=== PATIENT | female | born 1935 | race Caucasian/White ===

== ENCOUNTER 2016-08-06 20:15 | Emergency (ER) | payer MEDICARE, MEDICAID ==
[~2016-08-06] VITALS: Ht 149.9 cm; Wt 49.8 kg
[~2016-08-06 20:15] MED LIST: AUGM875T PO; CART240C4 PO; CHOL50006 PO; CLON0.5T PO; COZA50TA PO; DUONI NEB; LEVEMIR SQ; LIPI40TA PO; NOVONP2 SQ; PRED20 PO; ROPI.25 PO; TRAM50 PO
[2016-08-06 20:36] VITALS: BP 176/99; PULSE 90; RESP 18; TEMP 98.3; O2SAT 93
[2016-08-06] MEDS ORDERED: INSU1INJ5 SQ (21:01)
[2016-08-06] MEDS ORDERED: NOVONP2 SQ (21:01)
[2016-08-06] MEDS ORDERED: FLUT1INH INH (21:01)
[2016-08-06] MEDS ORDERED: IPRASOL INH (21:01)
[2016-08-06] MEDS ORDERED: ERGO1CAP10 PO (21:01)
[2016-08-06] MEDS ORDERED: CART240C PO (21:01)
[2016-08-06] MEDS ORDERED: LOSA100T PO (21:01)
[2016-08-06] MEDS ORDERED: CLON0.5T PO (21:01)
[2016-08-06] MEDS ORDERED: ROPI0.25 PO (21:01)
[2016-08-06] MEDS ORDERED: VENTAER INH (21:01)
[2016-08-06] MEDS ORDERED: ATOR20TA15 PO (21:01)
[2016-08-06 21:10] VITALS: BP 173/79
[2016-08-06] MEDS ORDERED: cloNIDine HCL 0.1 MG TAB PO ONE (21:30)
[2016-08-06 22:40] VITALS: BP 119/58; PULSE 75; RESP 18; O2SAT 93
--- NOTE | 2016-08-06 22:47 | PD ---
HPI Chief Complaint: Hypertension Time Seen by Provider: 20:59 Travel History International Travel<30 days: No Contact w/Intl Traveler<30days: No Traveled to known affect area: No History of Present Illness HPI 80-year-old female presents with complaint of high blood pressure. She was having a headache at home so she checked her blood pressure. The blood pressure was about 160/100. This concerned her greatly so she checked her pressure again and it was higher. She does have a history of hypertension and is on medication. Her headache actually is much better at this point she is a patient with Dr. Kaur: She does go for regular blood work. She is not having any chest pain or shortness of breath. 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 breast wound Eye Surgery: Yes (Cataract) Genitourinary Surgery: Yes (Rt. kidney removed) Gynecologic Surgery: Yes (Left lumpectomy ) Hysterectomy: No Other Surgery: Yes (Skin CA removal RUE) Social History Alcohol Use: No Tobacco Use: Yes (1/2 PPD) Substance Use: No Allergies-Medications (Allergen,Severity, Reaction): Coded Allergies: Bactrim (Verified Allergy, Severe, 08/06/16) Calcium (Verified Allergy, Severe, 08/06/16) Contrast Media (Verified Allergy, Severe, 08/06/16) Fluorescein (Verified Allergy, Severe, Rash, 08/06/16) Keflex (Verified Allergy, Severe, 08/06/16) Levaquin (Verified Allergy, Severe, Rash, 08/06/16) Morphine (Verified Allergy, Severe, Hallucinations, 08/06/16) Metformin (Verified Adverse Reaction, Severe, Anxiety, 08/06/16) Reported Meds & Prescriptions Reported Meds & Active Scripts Active Reported Duoneb (Ipratropium-Albuterol Neb) 0.5-2.5 Mg/3 Ml Neb 1 Nebule INH Q4HR NEB Ventolin Hfa 18 GM Inh (Albuterol Sulfate) 90 Mcg/Act Aer 2 Puff INH Q4-6H PRN Breo Ellipta Inh (Fluticasone/Vilanterol) 100-25 Mcg/Act Inh 1 Puff INH HS Use daily at the same time. Novolin N Inj (Insulin Human NPH) 1,000 Unit/10 Ml Vial 5 Units SQ DAILY Levemir Flextouch Pen Inj (Insulin Detemir) 300 unit/3 ML Pen 6 Units SQ HS Vitamin D (Ergocalciferol) 50,000 Unit Cap 50,000 Units PO DIRECTED Losartan (Losartan Potassium) 100 Mg Tab 100 Mg PO DAILY Ropinirole 0.25 Mg Tab 0.25 Mg PO HS Clonazepam 0.5 Mg Tab 0.5 Mg PO HS Atorvastatin (Atorvastatin Calcium) 20 Mg Tab 20 Mg PO HS Cartia Xt (Diltiazem ER 24 HR) 240 Mg Caper 240 Mg PO DAILY Review of Systems General / Constitutional: No: Fever, Chills Eyes: Positive: Blindness, No: Diploplia HENT: Positive: Headaches Cardiovascular: No: Chest Pain or Discomfort, Palpitations Respiratory: No: Sneezing Gastrointestinal: No: Nausea, Vomiting Genitourinary: No: Urgency Physical Exam Narrative GENERAL: [-] SKIN: Focused skin assessment warm/dry. HEAD: Atraumatic. Normocephalic. EYES: Pupils equal and round. And reactive No scleral icterus. No injection or drainage. ENT: No nasal bleeding or discharge. Mucous membranes pink and moist. NECK: Trachea midline. No JVD. CARDIOVASCULAR: Regular rate and rhythm. No murmur appreciated. RESPIRATORY: No accessory muscle use. Clear to auscultation. Breath sounds equal bilaterally. GASTROINTESTINAL: Abdomen soft, non-tender, nondistended. Hepatic and splenic margins not palpable. MUSCULOSKELETAL: No obvious deformities. No clubbing. No cyanosis. No edema. NEUROLOGICAL: Awake and alert. No obvious cranial nerve deficits. Motor grossly within normal limits. Normal speech. PSYCHIATRIC: Appropriate mood and affect; insight and judgment normal. Data Data Last Documented VS Vital Signs Date Time Temp Pulse Resp B/P Pulse Ox O2 Delivery O2 Flow Rate FiO2 08/06/16 22:40 75 18 119/58 93 Room Air 08/06/16 20:36 98.3 Orders Clonidine (Catapres) (08/06/16 21:30) [facility] Medical Decision Making Medical Screen Exam Complete: Yes Emergency Medical Condition: Yes Medical Record Reviewed: Yes Differential Diagnosis Differential includes hypertension Narrative Course Patient repeated readings which were elevated so she is given clonidine. He tolerated the clonidine well and her blood pressures come down. She is stable for discharge Diagnosis Primary Impression: Hypertension Disposition: 01 DISCHARGE HOME Condition: Stable Porfirio Savage MD Aug 06, 2016 22:47
== END 2016-08-06 23:00 | disposition home or self-care (01) ==
LOC: PHED 20:15
DX: I10 Essential (primary) hypertension (principal); F17.200 Nicotine dependence, unspecified, uncomplicated
CPT/HCPCS: 99283

== ENCOUNTER 2018-02-21 11:40 | Inpatient (IN) ==
[2018-02-21] MEDS ORDERED: MethylPREDNISolone Sod Succinate Inj 125 MG/2 ML Vial IV.PUSH ONE (12:18)
[2018-02-21 12:31] LABS: Baso # (Auto) 0.1 th/mm3 (0.0-0.2); Baso % (Auto) 1.1 % (0.0-2.0); Eos # (Auto) 0.6 th/mm3 (0.0-0.4); Eos % (Auto) 6.7 % (0.0-4.0); Hematocrit 47.7 % (35.0-46.0); Hemoglobin 15.8 gm/dL (11.6-15.3); Lymph # (Auto) 2.3 th/mm3 (1.0-4.8); Lymph % (Auto) 24.6 % (9.0-44.0); Mean Corpuscular Hemoglobin 30.4 pg (27.0-34.0); Mean Corpuscular Volume 92.1 fL (80.0-100.0); Mean Platelet Volume 7.9 fL (7.0-11.0); Mono # (Auto) 0.3 th/mm3 (0.0-0.9); Mono % (Auto) 3.5 % (0.0-8.0); Neut # (Auto) 6.3 th/mm3 (1.8-7.7); Neut % (Auto) 64.1 % (16.0-70.0); Platelet Count 352 th/mm3 (150-450); Red Blood Count 5.18 mil/mm3 (4.00-5.30); Red Cell Distribution Width 12.2 % (11.6-17.2); White Blood Count 9.6 th/mm3 (4.0-11.0)
[2018-02-21 12:39] LABS: Chloride 108 meq/L (98-107); Potassium 4.1 meq/L (3.5-5.1); Sodium 140 meq/L (136-145)
[2018-02-21 12:42] LABS: Calcium 9.3 mg/dL (8.5-10.1)
[2018-02-21 12:43] LABS: Albumin 3.7 g/dL (3.4-5.0); Anion Gap 7 meq/L (5-15); Blood Urea Nitrogen 23 mg/dL (7-18); Carbon Dioxide 24.6 meq/L (21.0-32.0); Glucose,Random 162 mg/dL (74-106)
[2018-02-21 12:46] LABS: Alanine Aminotransferase 24 U/L (10-53); Aspartate Aminotransferase 15 U/L (15-37); Glomerular Filtration Rate 31 mL/min (>89)
[2018-02-21 12:48] LABS: Total Protein 7.3 g/dL (6.4-8.2)
[2018-02-21 12:49] LABS: Alkaline Phosphatase 110 U/L (45-117)
[2018-02-21 12:51] LABS: Troponin I 0.06 ng/mL (0.02-0.05)
--- NOTE | 2018-02-21 13:25 | XR ---
EXAM DATE: 02/21/2018 12:18 PM EDT AGE/SEX: 82 years / Female INDICATIONS: . Cough CLINICAL DATA: This is the patient's initial encounter. Patient reports that signs and symptoms have been present for 1 week and indicates a pain score of 2/10. MEDICAL/SURGICAL HISTORY: . Carcinoma, breast. Chronic obstructive pulmonary disease. Diabetes. None. COMPARISON: [facility], CHEST SINGLE AP, 09/09/2015. . FINDINGS: Mild diffuse interstitial prominence with scarring in the inferior right upper lobe. No significant f ocal pleural or parenchymal opacities. The cardiomediastinal contours are unremarkable. Osseous struc tures are intact. CONCLUSION: 1. Senescent changes with right upper lobe scarring. 2. No acute cardiopulmonary disease. Electronically signed by: Kaushik Almonte MD 02/21/2018 1:24 PM EDT
[2018-02-21] MEDS ORDERED: Azithromycin 250 MG Tablet PO ONE (15:43)
[2018-02-21 16:16] LABS: ABG Base Excess -3.2 mmol/L (-2-2); ABG PCO2 33 mmHg (38-42); ABG PO2 67 mmHg (61-120)
--- NOTE | 2018-02-21 16:38 | ED ---
HPI General Chief Complaint: Respiratory Symptoms Stated Complaint: SOB Hx of pnemonia Time Seen by Provider: 02/21/18 12:03 Source: patient and family Limitations: no limitations History of Present Illness Patient is an 82-year-old female, past medical history significant for macular degeneration which left her blind in addition to COPD. She does not wear oxygen at home. She states over the last several days she has had worsening dyspnea at rest that gets even worse on exertion. She has tried her inhalers without much improvement. She describes a dry cough but no rhinorrhea, sore throat, fever, chills. She has not had any immobilization or leg swelling. She has a remote history of breast cancer but this is not active. MD Complaint: Reports shortness of breath and cough Onset (ago): day(s) Severity: moderate Consistency/Duration: constant Relieving factors: rest Exacerbating factors: exertion Known history of: Reports COPD Associated symptoms: Reports denies other symptoms Treatment prior to arrival: Reports bronchodilator Related Data Home Medications Medication Instructions Recorded Confirmed albuterol sulfate [Ventolin HFA] 1 puff INHALATION Q4-6H 02/21/18 02/21/18 aspirin [Aspirin Low Dose] 81 mg PO DAILY 02/21/18 02/21/18 atorvastatin 20 mg PO DAILY 02/21/18 02/21/18 diltiazem HCl 240 mg PO DAILY 02/21/18 02/21/18 insulin detemir U-100 [Levemir 6 unit SUBCUT QPM 02/21/18 02/21/18 U-100 Insulin] ropinirole 0.25 mg PO HS 02/21/18 02/21/18 Allergies Allergy/AdvReac Type Severity Reaction Status Date / Time calcium Allergy Severe Unverified 12/22/16 16:17 calcium carbonate Allergy Severe Unverified 12/22/16 16:17 calcium carbonate Allergy Severe Unverified 12/22/16 16:17 calcium chloride Allergy Severe Unverified 12/22/16 16:17 calcium polycarbophil Allergy Severe Unverified 12/22/16 16:17 cephalexin Allergy Severe Unverified 12/22/16 16:17 diatrizoate meglumine Allergy Severe Unverified 12/22/16 16:17 fluorescein Allergy Severe Rash Unverified 12/22/16 16:17 gadobenic acid Allergy Severe Unverified 12/22/16 16:17 gadodiamide Allergy Severe Unverified 12/22/16 16:17 gadoteridol Allergy Severe Unverified 12/22/16 16:17 iodixanol Allergy Severe Unverified 12/22/16 16:17 iohexol Allergy Severe Unverified 12/22/16 16:17 levofloxacin Allergy Severe Rash Unverified 12/22/16 16:17 morphine Allergy Severe Hallucinati Unverified 12/22/16 16:17 ons sulfamethoxazole Allergy Severe Unverified 12/22/16 16:17 trimethoprim Allergy Severe Unverified 12/22/16 16:17 metformin AdvReac Severe Anxiety Unverified 12/22/16 16:17 Review of Systems ROS: all other systems reviewed are negative [facility] Medical History Medical History COPD (chronic obstructive pulmonary disease) (Acute) Diabetes (Acute) HX: breast cancer (Acute) History of musculoskeletal cancer (Acute) Legally blind (Acute) Macular degeneration (Acute) Surgical History Surgical History Hx of kidney removal (Acute) Social History Social History Substance History: No History of Abuse Second Hand Smoke Exposure: Yes Smoking Status: Current every day smoker Tobacco Type: Cigarettes How Often Do You Have a Drink Containing Alcohol: Never Recent Travel in [facility] within the Last 8 Weeks: No Recent Out of Country Travel within the Last 8 Weeks: No Immunization History Tetanus Immunization: Unsure Exam Narrative Exam Narrative: GENERAL: Cachectic but well-appearing female SKIN: Focused skin assessment warm/dry. HEAD: Atraumatic. Normocephalic. EYES: Pupils equal and round. No scleral icterus. No injection or drainage. ENT: No nasal bleeding or discharge. Mucous membranes pink and moist. NECK: Trachea midline. No JVD. CARDIOVASCULAR: Regular rate and rhythm. No murmur appreciated. Intact and equal peripheral pulses. RESPIRATORY: Decreased breath sounds throughout with wheezes. Accessory muscle use. GASTROINTESTINAL: Abdomen soft, non-tender, nondistended. Hepatic and splenic margins not palpable. MUSCULOSKELETAL: No obvious deformities. No clubbing. No cyanosis. No edema. NEUROLOGICAL: Awake and alert. No obvious cranial nerve deficits. Motor grossly within normal limits. Normal speech. PSYCHIATRIC: Appropriate mood and affect; insight and judgment normal. Course Initial Documented Vital Signs Temperature 98.6 F 02/21/18 11:49 Pulse Rate 98 H 02/21/18 11:49 Respiratory Rate 18 02/21/18 11:49 Blood Pressure 178/94 H 02/21/18 11:49 Pulse Oximetry 94 L 02/21/18 11:49 Last Documented Vital Signs Temperature 98.6 F 02/21/18 11:49 Pulse Rate 97 H 02/21/18 16:50 Respiratory Rate 18 02/21/18 16:50 Blood Pressure 161/62 H 02/21/18 16:50 Pulse Oximetry 99 02/21/18 16:50 Medical Decision Making MDM Narrative Medical decision making narrative: Patient is an 82-year-old female who presents with complaint of shortness of breath that has been worsening over the last several days and has been partially relieved with her bronchodilators. She is hemodynamically stable but does have accessory muscle use on arrival. She improved after DuoNeb. EKG is without acute ischemic changes, chest x-ray does not show any pneumonia. Labs are relatively unremarkable. She has been given several breathing treatments after which she feels better intermittently. She has also been given steroids and azithromycin to cover for for an acute COPD exacerbation. Attempts were made to wean her off of oxygen her pulse ox would intermittently drop down to the 70s at which time she was placed back on nasal cannula. She has been admitted to Dr. Lombardo, hospitalist on-call, for further evaluation and management of her COPD exacerbation. Medical Screen Exam Complete: Yes Emergency Medical Condition: Yes Differential Diagnosis Differential Diagnosis: Differential diagnosis includes but is not limited to COPD exacerbation, pneumonia, pneumothorax. Medical Records Medical records reviewed: Yes I reviewed the patient's medical records. Lab Data Lab results reviewed: Yes I reviewed the patient's lab results. Result diagrams: 02/21/18 12:20 02/21/18 12:20 Lab Results 02/21/18 02/21/18 02/21/18 Range/Units 12:20 12:20 16:07 CBC w Diff Auto diff final WBC 9.6 (4.0-11.0) th/mm3 RBC 5.18 (4.00-5.30) mil/mm3 Hgb 15.8 H (11.6-15.3) gm/dL Hct 47.7 H (35.0-46.0) % MCV 92.1 (80.0-100.0) fL MCH 30.4 (27.0-34.0) pg MCHC 33.0 (32.0-36.0) % RDW 12.2 (11.6-17.2) % Plt Count 352 (150-450) th/mm3 MPV 7.9 (7.0-11.0) fL Neut % (Auto) 64.1 (16.0-70.0) % Lymph % (Auto) 24.6 (9.0-44.0) % [place] % (Auto) 3.5 (0.0-8.0) % Eos % (Auto) 6.7 H (0.0-4.0) % Baso % (Auto) 1.1 (0.0-2.0) % Neut # (Auto) 6.3 (1.8-7.7) th/mm3 Lymph # (Auto) 2.3 (1.0-4.8) th/mm3 [place] # (Auto) 0.3 (0.0-0.9) th/mm3 Eos # (Auto) 0.6 H (0.0-0.4) th/mm3 Baso # (Auto) 0.1 (0.0-0.2) th/mm3 WBC Differential . Differential Comment . Puncture Site Right radial Patient Temperature 98.6 O2 Saturation 91 (90-100) % ABG pH 7.41 (7.380-7.420) ABG pCO2 33 L (38-42) mmHg ABG pO2 67 (61-120) mmHg ABG HCO3 21 L (22-26) mmol/L ABG O2 Content 20.2 H (12.0-20.0) Vol % ABG Base Excess -3.2 L (-2-2) mmol/L ABG Methemoglobin 1.2 (0-2) % Christian Test Present Hemoglobin 15.8 (12.0-16.0) G/DL Carboxyhemoglobin 1.9 (0-4) % O2 Delivery Device Nasal cannula Liter Flow 2.00 L/M Critical Value No Sodium 140 (136-145) meq/L Potassium 4.1 (3.5-5.1) meq/L Chloride 108 H (98-107) meq/L Carbon Dioxide 24.6 (21.0-32.0) meq/L Anion Gap 7 (5-15) meq/L BUN 23 H (7-18) mg/dL Creatinine 1.60 H (0.50-1.00) mg/dL Estimated GFR 31 L (>89) mL/min POC Glucose (68-110) mg/dl Random Glucose 162 H (74-106) mg/dL Calcium 9.3 (8.5-10.1) mg/dL Total Bilirubin 0.3 (0.2-1.0) mg/dL AST 15 (15-37) U/L ALT 24 (10-53) U/L Alkaline Phosphatase 110 (45-117) U/L Troponin I 0.06 H (0.02-0.05) ng/mL Total Protein 7.3 (6.4-8.2) g/dL Albumin 3.7 (3.4-5.0) g/dL 02/21/18 Range/Units 16:13 CBC w Diff WBC (4.0-11.0) th/mm3 RBC (4.00-5.30) mil/mm3 Hgb (11.6-15.3) gm/dL Hct (35.0-46.0) % MCV (80.0-100.0) fL MCH (27.0-34.0) pg MCHC (32.0-36.0) % RDW (11.6-17.2) % Plt Count (150-450) th/mm3 MPV (7.0-11.0) fL Neut % (Auto) (16.0-70.0) % Lymph % (Auto) (9.0-44.0) % [place] % (Auto) (0.0-8.0) % Eos % (Auto) (0.0-4.0) % Baso % (Auto) (0.0-2.0) % Neut # (Auto) (1.8-7.7) th/mm3 Lymph # (Auto) (1.0-4.8) th/mm3 [place] # (Auto) (0.0-0.9) th/mm3 Eos # (Auto) (0.0-0.4) th/mm3 Baso # (Auto) (0.0-0.2) th/mm3 WBC Differential Differential Comment Puncture Site Patient Temperature O2 Saturation (90-100) % ABG pH (7.380-7.420) ABG pCO2 (38-42) mmHg ABG pO2 (61-120) mmHg ABG HCO3 (22-26) mmol/L ABG O2 Content (12.0-20.0) Vol % ABG Base Excess (-2-2) mmol/L ABG Methemoglobin (0-2) % Christian Test Hemoglobin (12.0-16.0) G/DL Carboxyhemoglobin (0-4) % O2 Delivery Device Liter Flow L/M Critical Value Sodium (136-145) meq/L Potassium (3.5-5.1) meq/L Chloride (98-107) meq/L Carbon Dioxide (21.0-32.0) meq/L Anion Gap (5-15) meq/L BUN (7-18) mg/dL Creatinine (0.50-1.00) mg/dL Estimated GFR (>89) mL/min POC Glucose 135 H (68-110) mg/dl Random Glucose (74-106) mg/dL Calcium (8.5-10.1) mg/dL Total Bilirubin (0.2-1.0) mg/dL AST (15-37) U/L ALT (10-53) U/L Alkaline Phosphatase (45-117) U/L Troponin I (0.02-0.05) ng/mL Total Protein (6.4-8.2) g/dL Albumin (3.4-5.0) g/dL Imaging Data Attestation: I personally reviewed and interpreted this imaging study as follows : Radiologist's impression: Chest X-Ray 02/21/18 12:18 CONCLUSION: 1. Senescent changes with right upper lobe scarring. 2. No acute cardiopulmonary disease. Discharge Plan Discharge Disposition Patient Disposition: 30 Still Patient Discharge Condition Condition: Fair Discharge Details Diagnosis: Acute exacerbation of chronic obstructive pulmonary disease (COPD), COPD with hypoxia Physicians Team ED Provider: Emilia Farley Primary Care Provider: Xin Lombardo Attending Provider: Vic Gutierrez Status ED Status: Admitted Patient
[2018-02-21] MEDS ORDERED: Dextrose 50% in Water 50 ML Vial IV.PUSH PRN (17:26)
[2018-02-21] MEDS: MethylPREDNISolone Sod Succinate Inj 40 MG/ML Vial IV.PUSH SCH (17:51)
[2018-02-21] MEDS: Sod Chloride 0.9% Inj 1,000 ML IV.CONT SCH (17:52)
[2018-02-21] MEDS: Enoxaparin Inj 30 MG/0.3 ML Syringe SQ SCH (17:52)
[2018-02-21] MEDS: Insulin Detemir Inj 1,000 UNIT/10 ML Vial SQ SCH (17:52)
[2018-02-21] MEDS ORDERED: ALPRAZolam 0.25 MG Tablet PO PRN (18:00)
[2018-02-21] MEDS ORDERED: Acetaminophen 325 MG Tablet PO PRN (18:00)
[2018-02-21 18:43] LABS: Troponin I 0.07 ng/mL (0.02-0.05)
--- NOTE | 2018-02-21 18:51 | P.HP ---
History of Present Illness Service: Medicine Primary Care Physician: Xin Lombardo MD History of Present Illness: 82 y/o female with history if copd , nicotine dependence, diabetes, legally blind who presents to the ED for increased sob. She was seen at the [facility] work force wellness aprox 2-3 weeks ago for soband was treated with prednisone and antibiotics. She states she improved but last week again started experiencing sob. She denies fever or chills, she has had an increased cough of clear phlegm. No chest pain or palpitations. Unfortunately she continued to smoke. Per her son she was smoking aprox a pack a day. She states she only had 3 cigarettes yesterday. Her appetite has been good. She has been ambulating at home. - Diagnosis (1) Acute exacerbation of chronic obstructive pulmonary disease (COPD) (2) Elevated troponin I level (3) Diabetes (4) Hypertension (5) Nicotine dependence Inpatient Certification: I certify that the inpatient services were ordered in accordance with Medicare regulations governing the order. This includes certification that hospital inpatient services are reasonable and necessary and in the case of services not specified as inpatient-only under 42 CFR 419.22(n), that they are appropriately provided as inpatient services in accordance to with the 2-midnight benchmark under 43 CFR 412.3(e) Estimated Total Length of Stay (Days): 2 Plans for Post Hospital Care: Not yet determined Review of Systems All other systems reviewed negative except as stated in HPI [facility] - History History Provided By: Patient, Family Member, Medical Record - Medical History Medical History: Medical History (Last Updated 02/21/18 @ 19:00 by Xin Lombardo MD) Nicotine dependence (Acute) Hypertension (Acute) Diabetes (Acute) CKD (chronic kidney disease) stage 3, GFR 30-59 ml/min COPD (chronic obstructive pulmonary disease) HX: breast cancer History of musculoskeletal cancer Hyperlipidemia Legally blind Macular degeneration - Surgical History Surgical History: Surgical History (Last Reviewed 02/21/18 @ 18:50 by Xin Lombardo MD) History of lumpectomy of left breast Hx of kidney removal - Family History Family History: Family History (Last Updated 02/21/18 @ 17:42 by Xin Lombardo MD) Other Cardiac disorder - Social History I have reviewed the patient's Social History: Yes - Tobacco History Second Hand Smoke Exposure: Yes Tobacco Use In Past 30 Days: Yes Smoking Status: Current every day smoker Tobacco Type: Cigarettes Packs Per Day: 1 Years Smoked: 60 - Alcohol History How Often Do You Have a Drink Containing Alcohol: Never - Substance Use History Substance History: No History of Abuse - Travel History Recent Travel in the [place] Within the Last 8 Weeks: No Recent Travel Out of the Country Within the Last 8 Weeks: No - Immunization History Tetanus Immunization: Unsure Medications and Allergies Active Medications: Active Medications Acetaminophen (Tylenol) 650 mg PO Q4H PRN PRN Reason: Temp > 100.4 Al Hydroxide/Mg Hydroxide (Milk Of Ann-Marie Liq) 30 ml PO Q12H PRN PRN Reason: Mild Constipation Albuterol (Duoneb Neb (Vivi)) 1 ampul NEB Q6HR NEB VIVI Albuterol (Albuterol Neb (Prn)) 2.5 mg NEB Q2HR NEB PRN PRN Reason: SHORTNESS OF BREATH Alprazolam (Xanax) 0.25 mg PO DAILY PRN PRN Reason: Anxiety Aspirin (Ecotrin) 81 mg PO DAILY [facility] Atorvastatin Calcium (Lipitor) 20 mg PO DAILY [facility] Azithromycin (Zithromax) 500 mg PO Q24H [facility] Stop: 02/24/18 16:01 Budesonide/Formoterol Fumarate (Symbicort 160/4.5 Mcg Inh) 2 puff INH BID [facility] Dextrose (D50w Vial) 50 ml IV.PUSH UNSCH PRN PRN Reason: PER HYPOGLYCEMIA PROTOCOL Diltiazem HCl (Cardizem Cd 24hr) 240 mg PO DAILY [facility] Enoxaparin Sodium (Lovenox Inj) 30 mg SQ Q24H [facility] Last Admin: 02/21/18 17:52 Dose: 30 mg Glucagon (Glucagon Inj) 1 mg OTHER PRN PRN PRN Reason: for Hypoglycemia Protocol Sodium Chloride (Ns Inj) 1,000 mls @ 75 mls/hr IV.CONT .[id number] [facility] Last Admin: 02/21/18 17:52 Dose: Not Given Insulin Aspart (Novolog Insulin Correctional Sugar Inj) 0 unit SQ ACHS [facility]; Protocol Insulin Detemir (Levemir Inj) 6 unit SQ QPM [facility] Last Admin: 02/21/18 17:52 Dose: 6 unit Losartan Potassium (Cozaar) 100 mg PO DAILY [facility] Methylprednisolone Sodium Succinate (Solumedrol Inj) 60 mg IV.PUSH Q6H [facility] Last Admin: 02/21/18 17:51 Dose: 60 mg Nicotine (Habitrol 14 Mg Patch.24 Hr) 1 patch T-DERMAL DAILY [facility] Patch Removal (Remove Old Patch) 1 each T-DERMAL DAILY [facility] Ropinirole HCl (Requip) 0.25 mg PO HS VIVI Sodium Chloride (Ns Flush) 2 ml IV.FLUSH BID [facility] Sodium Chloride (Ns Flush) 2 ml IV.FLUSH PRN PRN PRN Reason: FLUSH AFTER USING IV ACCESS Temazepam (Restoril) 15 mg PO HS PRN PRN Reason: INSOMNIA Allergies Allergy/AdvReac Type Severity Reaction Status Date / Time calcium Allergy Severe Unverified 12/22/16 16:17 calcium carbonate Allergy Severe Unverified 12/22/16 16:17 calcium carbonate Allergy Severe Unverified 12/22/16 16:17 calcium chloride Allergy Severe Unverified 12/22/16 16:17 calcium polycarbophil Allergy Severe Unverified 12/22/16 16:17 cephalexin Allergy Severe Unverified 12/22/16 16:17 diatrizoate meglumine Allergy Severe Unverified 12/22/16 16:17 fluorescein Allergy Severe Rash Unverified 12/22/16 16:17 gadobenic acid Allergy Severe Unverified 12/22/16 16:17 gadodiamide Allergy Severe Unverified 12/22/16 16:17 gadoteridol Allergy Severe Unverified 12/22/16 16:17 iodixanol Allergy Severe Unverified 12/22/16 16:17 iohexol Allergy Severe Unverified 12/22/16 16:17 levofloxacin Allergy Severe Rash Unverified 12/22/16 16:17 morphine Allergy Severe Hallucinati Unverified 12/22/16 16:17 ons sulfamethoxazole Allergy Severe Unverified 12/22/16 16:17 trimethoprim Allergy Severe Unverified 12/22/16 16:17 metformin AdvReac Severe Anxiety Unverified 12/22/16 16:17 Home Medications Medication Instructions Recorded Confirmed Type albuterol sulfate 2.5 mg INHALATION Q6HR PRN 02/21/18 02/21/18 History albuterol sulfate [Ventolin HFA] 1 puff INHALATION Q4-6H 02/21/18 02/21/18 History alprazolam 0.25 mg PO DAILY PRN 02/21/18 02/21/18 History aspirin [Aspirin Low Dose] 81 mg PO DAILY 02/21/18 02/21/18 History atorvastatin 20 mg PO DAILY 02/21/18 02/21/18 History diltiazem HCl 240 mg PO DAILY 02/21/18 02/21/18 History fluticasone-salmeterol [AirDuo 1 puff INHALATION Q12H 02/21/18 02/21/18 History RespiClick] insulin detemir U-100 [Levemir 6 unit SUBCUT QPM 02/21/18 02/21/18 History U-100 Insulin] ipratropium bromide 2.5 ml INHALATION Q6HR PRN 02/21/18 02/21/18 History ropinirole 0.25 mg PO HS 02/21/18 02/21/18 History telmisartan 80 mg PO DAILY 02/21/18 02/21/18 History Exam Vital signs: Vital Signs 02/21/18 11:49 02/21/18 12:37 02/21/18 12:41 Temperature 98.6 F Pulse Rate 98 H 94 H 95 H Respiratory Rate 18 22 Blood Pressure 178/94 H Pulse Oximetry 94 L 94 L 02/21/18 14:45 02/21/18 15:49 02/21/18 15:52 Temperature Pulse Rate 86 93 H Respiratory Rate 20 20 Blood Pressure Pulse Oximetry 97 02/21/18 16:50 Temperature Pulse Rate 97 H Respiratory Rate 18 Blood Pressure 161/62 H Pulse Oximetry 99 Intake & Output 02/20/18 02/21/18 02/21/18 18:59 06:59 18:59 Weight 52.9 kg - Constitutional no acute distress - Routine HEENT Exam Head: Present: normocephalic, atraumatic ENT: Present: mucous membranes moist - Routine Neck Exam Present: supple - Routine Respiratory Exam Present: prolonged expiratory phase, rhonchi Comments: moving air - Routine Cardiovascular Exam Present: tachycardia - Routine Abdominal Exam Present: soft, normoactive bowel sounds - Routine Extremities Exam Present: full ROM - Routine Skin Exam Present: intact - Routine Neurological Exam Present: alert, oriented X3 Results - Labs CBC & Chem 7: 02/21/18 12:20 02/21/18 12:20 Labs: Laboratory Results - last 24 hr 02/21/18 02/21/18 02/21/18 12:20 12:20 16:07 CBC w Diff Auto diff final WBC 9.6 RBC 5.18 Hgb 15.8 H Hct 47.7 H MCV 92.1 MCH 30.4 MCHC 33.0 RDW 12.2 Plt Count 352 MPV 7.9 Neut % (Auto) 64.1 Lymph % (Auto) 24.6 [place] % (Auto) 3.5 Eos % (Auto) 6.7 H Baso % (Auto) 1.1 Neut # (Auto) 6.3 Lymph # (Auto) 2.3 [place] # (Auto) 0.3 Eos # (Auto) 0.6 H Baso # (Auto) 0.1 WBC Differential . Differential Comment . Puncture Site Right radial Patient Temperature 98.6 O2 Saturation 91 ABG pH 7.41 ABG pCO2 33 L ABG pO2 67 ABG HCO3 21 L ABG O2 Content 20.2 H ABG Base Excess -3.2 L ABG Methemoglobin 1.2 Christian Test Present Hemoglobin 15.8 Carboxyhemoglobin 1.9 O2 Delivery Device Nasal cannula Liter Flow 2.00 Critical Value No Sodium 140 Potassium 4.1 Chloride 108 H Carbon Dioxide 24.6 Anion Gap 7 BUN 23 H Creatinine 1.60 H Estimated GFR 31 L POC Glucose Random Glucose 162 H Calcium 9.3 Total Bilirubin 0.3 AST 15 ALT 24 Alkaline Phosphatase 110 Total Creatine Kinase Troponin I 0.06 H Total Protein 7.3 Albumin 3.7 02/21/18 02/21/18 16:13 18:10 CBC w Diff WBC RBC Hgb Hct MCV MCH MCHC RDW Plt Count MPV Neut % (Auto) Lymph % (Auto) [place] % (Auto) Eos % (Auto) Baso % (Auto) Neut # (Auto) Lymph # (Auto) [place] # (Auto) Eos # (Auto) Baso # (Auto) WBC Differential Differential Comment Puncture Site Patient Temperature O2 Saturation ABG pH ABG pCO2 ABG pO2 ABG HCO3 ABG O2 Content ABG Base Excess ABG Methemoglobin Christian Test Hemoglobin Carboxyhemoglobin O2 Delivery Device Liter Flow Critical Value Sodium Potassium Chloride Carbon Dioxide Anion Gap BUN Creatinine Estimated GFR POC Glucose 135 H Random Glucose Calcium Total Bilirubin AST ALT Alkaline Phosphatase Total Creatine Kinase 112 Troponin I Total Protein Albumin - Imaging Impressions Chest X-Ray 02/21/18 12:18 CONCLUSION: 1. Senescent changes with right upper lobe scarring. 2. No acute cardiopulmonary disease. Caprini VTE Risk Assessment Caprini VTE Risk Assessment: Moderate/High Risk (score >= 2) Caprini Risk Assessment Model: Point Value = 1 Point Value = 2 Point Value = 3 Point Value = 5 Age 41-60 Minor surgery BMI > 25 kg/m2 Swollen legs Varicose veins or History of unexplained or recurrent spontaneous Oral contraceptives or hormone replacement Sepsis (< 1 month) Serious lung disease, including pneumonia (< 1 month) Abnormal pulmonary function Acute myocardial infarction Congestive heart failure (< 1 month) History of inflammatory bowel disease Medical patient at bed rest Age 61-74 Arthroscopic surgery Major open surgery (> 45 min) Laparoscopic surgery (> 45 min) Malignancy Confined to bed (> 72 hours) Immobilizing plaster cast Central venous access Age >= 75 History of VTE Family history of VTE Factor V Leiden Prothrombin [id number] Lupus anticoagulant Anticardiolipin antibodies Elevated serum homocysteine Heparin-induced thrombocytopenia Other congenital or acquired thrombophilia Stroke (< 1 month) Elective arthroplasty Hip, pelvis, or leg fracture Acute spinal cord injury (< 1 month) Prophylaxis Regimen: Total Risk Factor Score Risk Level Prophylaxis Regimen 0-1 Low Early ambulation 2 Moderate Order ONE of the following: *Sequential Compression Device (SCD) *Heparin 5000 units SQ BID 3-4 Higher Order ONE of the following medications: *Heparin 5000 units SQ TID *Enoxaparin/Lovenox 40 mg SQ daily (WT < 150 kg, CrCl > 30 mL/min) *Enoxaparin/Lovenox 30 mg SQ daily (WT < 150 kg, CrCl > 10-29 mL/min) *Enoxaparin/Lovenox 30 mg SQ BID (WT < 150 kg, CrCl > 30 mL/min) AND/OR *Sequential Compression Device (SCD) 5 or more Highest Order ONE of the following medications: *Heparin 5000 units SQ TID (Preferred with Epidurals) *Enoxaparin/Lovenox 40 mg SQ daily (WT < 150 kg, CrCl > 30 mL/min) *Enoxaparin/Lovenox 30 mg SQ daily (WT < 150 kg, CrCl > 10-29 mL/min) *Enoxaparin/Lovenox 30 mg SQ BID (WT < 150 kg, CrCl > 30 mL/min) AND *Sequential Compression Device (SCD) Assessment and Plan - Assessment (1) Acute exacerbation of chronic obstructive pulmonary disease (COPD) Code(s): J44.1 - Chronic obstructive pulmonary disease with (acute) exacerbation Status: Acute Plan: She received duonebs in the ER and solumedrol, she will continue with duonebs and Iv steroids. Cur, Will continue azithromycin initiated in the ER and repeat Xray in the am Currently needing 2 liters oxygen for her hypoxia. She may need to be discharged on oxygen. (2) Elevated troponin I level Code(s): R74.8 - Abnormal levels of other serum enzymes Status: Acute Plan: troponins elevated in ER more then likely demand mediated. Has happened on prior admission for copd exacerbation and has been seen by cardiology. Will do serial troponins and ekgs and place on telemetry over night. (3) Diabetes Code(s): E11.9 - Type 2 diabetes mellitus without complications Status: Chronic Plan: Continue home levemir, sliding scale. fluids and diabetic diet. as the steroids will increase her sugar (4) Hypertension Code(s): I10 - Essential (primary) hypertension Status: Chronic Plan: continue home medications and monitor (5) Nicotine dependence Code(s): F17.200 - Nicotine dependence, unspecified, uncomplicated Status: Chronic Plan: She continues to smoke despite her COPD and in the past has denied the amount she actually smokes.She is aware of the need to stop smoking. Discussed the use of the nicotine patch with her. Will assist her with other outpatient resources. - Plan Code Status: full code Discussed Condition With: patient and son (3) Diabetes Qualifiers: Diabetes mellitus type: type 2 Diabetes mellitus fpc insulin use: with fpc use Diabetes mellitus complication status: with kidney complications Diabetes mellitus complication detail: with chronic kidney disease Chronic kidney disease stage: stage 3 (moderate) Qualified Code(s): E11.22 - Type 2 diabetes mellitus with diabetic chronic kidney disease; N18.3 - Chronic kidney disease, stage 3 (moderate); Z79.4 - terminal worker (current) use of insulin (4) Hypertension Qualifiers: Hypertension type: essential hypertension Qualified Code(s): I10 - Essential (primary) hypertension
[2018-02-21] MEDS: Insulin NovoLOG Aspart Correctional Sugar Inj SQ SCH (20:49)
[2018-02-21] MEDS: Budesonide-Formoterol 160/4.5 MCG 6 GM Inhaler INH SCH (21:55)
[2018-02-21 23:56] LABS: Troponin I 0.06 ng/mL (0.02-0.05)
[2018-02-22] MEDS: MethylPREDNISolone Sod Succinate Inj 40 MG/ML Vial IV.PUSH SCH ×5 (00:47→21:28)
[2018-02-22] MEDS: Temazepam 15 MG Capsule PO PRN ×2 (00:51→21:33)
[2018-02-22 05:46] LABS: Potassium 3.8 meq/L (3.5-5.1)
[2018-02-22 05:49] LABS: Calcium 9.1 mg/dL (8.5-10.1); Carbon Dioxide 22.6 meq/L (21.0-32.0)
[2018-02-22] MEDS: Insulin NovoLOG Aspart Correctional Sugar Inj SQ SCH ×4 (08:36→21:29)
[2018-02-22] MEDS: Budesonide-Formoterol 160/4.5 MCG 6 GM Inhaler INH SCH ×2 (08:38→21:23)
--- NOTE | 2018-02-22 09:05 | XR ---
EXAM DATE: 02/22/2018 12:00 AM EDT AGE/SEX: 82 years / Female INDICATIONS: . Severe shorntess of breath, especially after transfer from bed to wheelchair. CLINICAL DATA: This is the patient's subsequent encounter. Patient reports that signs and symptoms h ave been present for 2 days and indicates a pain score of 0/10. MEDICAL/SURGICAL HISTORY: Chronic obstructive pulmonary disease. Carcinoma, breast. Diabetes. Chronic kidney disease. Hypertension. Smoker. Musculoskeletal cancer. . Kideny removed. Left lumpe ctomy. COMPARISON: [facility], CHEST 2V PA&LAT, 02/21/2018. . FINDINGS: Progressive wedge-shaped parenchymal opacity in the right upper lobe. Diffuse interstitial prominence and hyperexpanded lungs. The cardiomediastinal contours are unremarkable. Osseous structures are int act. CONCLUSION: 1. Progression of wedge-shaped parenchymal right upper lobe airspace disease which may reflect worse buzz atelectasis. Differential considerations include developing pneumonia and aspiration. Electronically signed by: Kaushik Almonte MD 02/22/2018 9:04 AM EDT
[2018-02-22] MEDS: dilTIAZem CD 240 MG Capsule PO SCH (09:40)
[2018-02-22] MEDS: Sod Chloride 0.9% Inj 1,000 ML IV.CONT SCH ×3 (09:48→21:22)
--- NOTE | 2018-02-22 12:20 | P.PN ---
Subjective Interval history: feeling anxious and shaky, cough is better, denies chest pain , states they did not start iv fluids and was told to drink water, states she was told she could not have the alprazolam that was ordered for her anxiety, refused early am duoneb. Daughter in room with her when she was seen, continues to deny chest pain . states was active during her illness never bedridden, continues to state she will no longer smoke. Physical Exam Vital signs: Vital Signs 02/21/18 12:37 02/21/18 12:41 02/21/18 14:45 Temperature Pulse Rate 94 H 95 H 86 Respiratory Rate 22 20 Blood Pressure Pulse Oximetry 94 L 02/21/18 15:49 02/21/18 15:52 02/21/18 16:50 Temperature Pulse Rate 93 H 97 H Respiratory Rate 20 18 Blood Pressure 161/62 H Pulse Oximetry 97 99 02/21/18 20:00 02/21/18 21:38 02/22/18 00:00 Temperature 99.2 F 97.0 F L Pulse Rate 83 90 92 H Respiratory Rate 16 20 16 Blood Pressure 140/63 120/62 Pulse Oximetry 92 L 94 L 02/22/18 04:00 02/22/18 09:38 02/22/18 09:54 Temperature 97.0 F L 97.0 F L Pulse Rate 88 104 H Respiratory Rate 16 18 Blood Pressure 119/57 L 145/68 H Pulse Oximetry 96 92 L 92 L 02/22/18 09:55 Temperature Pulse Rate 103 H Respiratory Rate 20 Blood Pressure Pulse Oximetry Intake & Output 02/21/18 02/22/18 02/22/18 18:59 06:59 18:59 Intake Total 240 / 240 Balance 240 / 240 Weight 52.9 kg 52.9 kg Intake: Oral 240 / 240 Other: # Voids 2 - Constitutional no acute distress, cooperative - Routine HEENT Exam Head: Present: normocephalic Comments: dentures in - Routine Neck Exam Present: supple - Routine Respiratory Exam Present: CTA bilaterally, prolonged expiratory phase - Routine Cardiovascular Exam Present: RRR - Routine Abdominal Exam Present: soft, normoactive bowel sounds - Routine Extremities Exam Present: full ROM - Routine Skin Exam Present: intact - Routine Neurological Exam Present: alert, oriented X3 - Routine Psychiatric Exam Present: anxious Results - Labs CBC & Chem 7: 02/21/18 12:20 10/16/18 04:45 Laboratory Results - last 24 hr 02/21/18 02/21/18 02/21/18 12:20 12:20 16:07 CBC w Diff Auto diff final WBC 9.6 RBC 5.18 Hgb 15.8 H Hct 47.7 H MCV 92.1 MCH 30.4 MCHC 33.0 RDW 12.2 Plt Count 352 MPV 7.9 Neut % (Auto) 64.1 Lymph % (Auto) 24.6 [place] % (Auto) 3.5 Eos % (Auto) 6.7 H Baso % (Auto) 1.1 Neut # (Auto) 6.3 Lymph # (Auto) 2.3 [place] # (Auto) 0.3 Eos # (Auto) 0.6 H Baso # (Auto) 0.1 WBC Differential . Differential Comment . Puncture Site Right radial Patient Temperature 98.6 O2 Saturation 91 ABG pH 7.41 ABG pCO2 33 L ABG pO2 67 ABG HCO3 21 L ABG O2 Content 20.2 H ABG Base Excess -3.2 L ABG Methemoglobin 1.2 Christian Test Present Hemoglobin 15.8 Carboxyhemoglobin 1.9 O2 Delivery Device Nasal cannula Liter Flow 2.00 Critical Value No Sodium 140 Potassium 4.1 Chloride 108 H Carbon Dioxide 24.6 Anion Gap 7 BUN 23 H Creatinine 1.60 H Estimated GFR 31 L POC Glucose Random Glucose 162 H Calcium 9.3 Total Bilirubin 0.3 AST 15 ALT 24 Alkaline Phosphatase 110 Total Creatine Kinase Troponin I 0.06 H Total Protein 7.3 Albumin 3.7 02/21/18 02/21/18 02/21/18 16:13 18:10 20:32 CBC w Diff WBC RBC Hgb Hct MCV MCH MCHC RDW Plt Count MPV Neut % (Auto) Lymph % (Auto) [place] % (Auto) Eos % (Auto) Baso % (Auto) Neut # (Auto) Lymph # (Auto) [place] # (Auto) Eos # (Auto) Baso # (Auto) WBC Differential Differential Comment Puncture Site Patient Temperature O2 Saturation ABG pH ABG pCO2 ABG pO2 ABG HCO3 ABG O2 Content ABG Base Excess ABG Methemoglobin Christian Test Hemoglobin Carboxyhemoglobin O2 Delivery Device Liter Flow Critical Value Sodium Potassium Chloride Carbon Dioxide Anion Gap BUN Creatinine Estimated GFR POC Glucose 135 H 374 H Random Glucose Calcium Total Bilirubin AST ALT Alkaline Phosphatase Total Creatine Kinase 112 Troponin I 0.07 H Total Protein Albumin 02/21/18 02/22/18 02/22/18 23:15 04:45 07:30 CBC w Diff WBC RBC Hgb Hct MCV MCH MCHC RDW Plt Count MPV Neut % (Auto) Lymph % (Auto) [place] % (Auto) Eos % (Auto) Baso % (Auto) Neut # (Auto) Lymph # (Auto) [place] # (Auto) Eos # (Auto) Baso # (Auto) WBC Differential Differential Comment Puncture Site Patient Temperature O2 Saturation ABG pH ABG pCO2 ABG pO2 ABG HCO3 ABG O2 Content ABG Base Excess ABG Methemoglobin Christian Test Hemoglobin Carboxyhemoglobin O2 Delivery Device Liter Flow Critical Value Sodium 139 Potassium 3.8 Chloride 107 Carbon Dioxide 22.6 Anion Gap 9 BUN 30 H Creatinine 1.60 H Estimated GFR 31 L POC Glucose 192 H Random Glucose 187 H Calcium 9.1 Total Bilirubin AST ALT Alkaline Phosphatase Total Creatine Kinase 130 Troponin I 0.06 H Total Protein Albumin 02/22/18 11:26 CBC w Diff WBC RBC Hgb Hct MCV MCH MCHC RDW Plt Count MPV Neut % (Auto) Lymph % (Auto) [place] % (Auto) Eos % (Auto) Baso % (Auto) Neut # (Auto) Lymph # (Auto) [place] # (Auto) Eos # (Auto) Baso # (Auto) WBC Differential Differential Comment Puncture Site Patient Temperature O2 Saturation ABG pH ABG pCO2 ABG pO2 ABG HCO3 ABG O2 Content ABG Base Excess ABG Methemoglobin Christian Test Hemoglobin Carboxyhemoglobin O2 Delivery Device Liter Flow Critical Value Sodium Potassium Chloride Carbon Dioxide Anion Gap BUN Creatinine Estimated GFR POC Glucose 290 H Random Glucose Calcium Total Bilirubin AST ALT Alkaline Phosphatase Total Creatine Kinase Troponin I Total Protein Albumin - Imaging Impressions Chest X-Ray 02/21/18 12:18 CONCLUSION: 1. Senescent changes with right upper lobe scarring. 2. No acute cardiopulmonary disease. Chest X-Ray 02/22/18 00:00 CONCLUSION: 1. Progression of wedge-shaped parenchymal right upper lobe airspace disease which may reflect worsening atelectasis. Differential considerations include developing pneumonia and aspiration. Assessment and Plan - Assessment (1) Acute exacerbation of chronic obstructive pulmonary disease (COPD) Code(s): J44.1 - Chronic obstructive pulmonary disease with (acute) exacerbation Status: Acute Plan: solumedrol making her anxious and jittery, will try decreasing, cont duonebs, oxygen, she is doing well with incentive spirometry (2) Elevated troponin I level Code(s): R74.8 - Abnormal levels of other serum enzymes Status: Acute Plan: troponins mildly elevated, no acute ekgs changes, no chest pain, suspect demand mediated, has happend on prior admission due to copd exacerbation (3) Diabetes Code(s): E11.9 - Type 2 diabetes mellitus without complications Status: Chronic Plan: Continue home levemir, increase sliding scale, she never got the IV fluids ordered (4) Hypertension Code(s): I10 - Essential (primary) hypertension Status: Chronic Plan: continue home medications and monitor (5) Nicotine dependence Code(s): F17.200 - Nicotine dependence, unspecified, uncomplicated Status: Chronic Plan: smoking cessation again discussed - Plan Discussed Condition With: patient and daughter at bedside (3) Diabetes Qualifiers: Diabetes mellitus type: type 2 Diabetes mellitus ferry terminal agent insulin use: with ferry terminal agent use Diabetes mellitus complication status: with kidney complications Diabetes mellitus complication detail: with chronic kidney disease Chronic kidney disease stage: stage 3 (moderate) Qualified Code(s): E11.22 - Type 2 diabetes mellitus with diabetic chronic kidney disease; N18.3 - Chronic kidney disease, stage 3 (moderate); Z79.4 - correction (current) use of insulin (4) Hypertension Qualifiers: Hypertension type: essential hypertension Qualified Code(s): I10 - Essential (primary) hypertension
[2018-02-22] MEDS: Azithromycin 250 MG Tablet PO SCH (16:27)
[2018-02-22] MEDS: Insulin Detemir Inj 1,000 UNIT/10 ML Vial SQ SCH (17:11)
[2018-02-22] MEDS: Enoxaparin Inj 30 MG/0.3 ML Syringe SQ SCH (17:12)
--- NOTE | 2018-02-22 20:10 | ECG ---
Date Performed: 02/21/2018 Time Performed: 13:33:08 PTAGE: 82 years EKG: Sinus rhythm POSSIBLE LEFT ATRIAL ENLARGEMENT SEPTAL MYOCARDIAL INFARCTION ABNORMAL ECG PREVIOUS TRACING : 09/09/2015 12.54 Since the previous tracing, no significant change noted DOCTOR: Juancarlos Dixon Interpretating Date/Time 02/22/2018 20:08:11
--- NOTE | 2018-02-22 20:10 | ECG ---
Date Performed: 02/21/2018 Time Performed: 18:03:37 PTAGE: 82 years EKG: Sinus rhythm POSSIBLE LEFT ATRIAL ENLARGEMENT MODERATE ST DEPRESSION ABNORMAL ECG PREVIOUS TRACING : 02/21/2018 13.33 Since the previous tracing, no significant change noted DOCTOR: Juancarlos Dixon Interpretating Date/Time 02/22/2018 20:08:21
--- NOTE | 2018-02-22 20:10 | ECG ---
Date Performed: 02/21/2018 Time Performed: 22:34:49 PTAGE: 82 years EKG: Sinus rhythm POSSIBLE LEFT ATRIAL ENLARGEMENT BORDERLINE ECG PREVIOUS TRACING : 02/21/2018 18.03 Since the previous tracing, no significant change noted DOCTOR: Juancarlos Dixon Interpretating Date/Time 02/22/2018 20:09:03
[2018-02-23 06:56] LABS: Potassium 4.2 meq/L (3.5-5.1)
[2018-02-23 07:04] LABS: Calcium 8.6 mg/dL (8.5-10.1); Carbon Dioxide 21.4 meq/L (21.0-32.0)
--- NOTE | 2018-02-23 07:56 | P.CONCA ---
History of Present Illness Primary Care Provider: Xin Lombardo MD History of Present Illness: 82-year-old female with COPD, CKD stage III with solitary kidney, tobacco use, HTN, HLD, IDDM, legally blind who presented with progressively worsening shortness of breath. Shortness of breath similar to previous COPD exacerbations. Patient still with wheezing after breathing treatment this morning. Patient denies any chest pain. Patient denies any prior history of heart disease. Troponins drawn and shows 0.06, 0.07, 0.06; after these we are consulted. Previous troponin in 2013 0.07. Baseline creatinine around 1.3- 1.4. EKG with NSR, septal Q waves which appear to be chronic and unchanged. Review of Systems All other systems reviewed negative except as stated in HPI [facility] - History History Provided By: Patient, Medical Record - Medical History Medical History: Medical History (Last Reviewed 02/23/18 @ 07:27 by Steve Mccoy) Nicotine dependence (Chronic) Hypertension (Chronic) Diabetes (Chronic) CKD (chronic kidney disease) stage 3, GFR 30-59 ml/min COPD (chronic obstructive pulmonary disease) HX: breast cancer History of musculoskeletal cancer Hyperlipidemia Legally blind Macular degeneration - Surgical History Surgical History: Surgical History (Last Reviewed 02/22/18 @ 08:34 by Damián Andrade) History of lumpectomy of left breast Hx of kidney removal - Family History Family History: Family History (Last Updated 02/21/18 @ 17:42 by Xin Lombardo MD) Other Cardiac disorder - Tobacco History Second Hand Smoke Exposure: Yes Tobacco Use In Past 30 Days: Yes Smoking Status: Current every day smoker Tobacco Type: Cigarettes Packs Per Day: 1 Years Smoked: 60 - Alcohol History How Often Do You Have a Drink Containing Alcohol: Never - Substance Use History Substance History: No History of Abuse - Travel History Recent Travel in the [place] Within the Last 8 Weeks: No Recent Travel Out of the Country Within the Last 8 Weeks: No - Immunization History Tetanus Immunization: Unsure Medications and Allergies Active Medications: Active Medications Acetaminophen (Tylenol) 650 mg PO Q4H PRN PRN Reason: Temp > 100.4 Al Hydroxide/Mg Hydroxide (Milk Of Magnshay Liq) 30 ml PO Q12H PRN PRN Reason: Mild Constipation Albuterol (Duoneb Neb (Vivi)) 1 ampul NEB Q6HR NEB [facility] Last Admin: 02/23/18 07:25 Dose: 1 ampul Albuterol (Albuterol Neb (Prn)) 2.5 mg NEB Q2HR NEB PRN PRN Reason: SHORTNESS OF BREATH Alprazolam (Xanax) 0.25 mg PO DAILY PRN PRN Reason: Anxiety Last Admin: 02/22/18 16:27 Dose: 0.25 mg Aspirin (Ecotrin) 81 mg PO DAILY [facility] Last Admin: 02/22/18 09:42 Dose: 81 mg Atorvastatin Calcium (Lipitor) 20 mg PO DAILY [facility] Last Admin: 02/22/18 09:41 Dose: 20 mg Azithromycin (Zithromax) 500 mg PO Q24H [facility] Stop: 02/24/18 16:01 Last Admin: 02/22/18 16:27 Dose: 500 mg Budesonide/Formoterol Fumarate (Symbicort 160/4.5 Mcg Inh) 2 puff INH BID [facility] Last Admin: 02/22/18 21:23 Dose: 2 puff Dextrose (D50w Vial) 50 ml IV.PUSH UNSCH PRN PRN Reason: PER HYPOGLYCEMIA PROTOCOL Diltiazem HCl (Cardizem Cd 24hr) 240 mg PO DAILY [facility] Last Admin: 02/22/18 09:40 Dose: 240 mg Enoxaparin Sodium (Lovenox Inj) 30 mg SQ Q24H [facility] Last Admin: 02/22/18 17:12 Dose: 30 mg Glucagon (Glucagon Inj) 1 mg OTHER PRN PRN PRN Reason: for Hypoglycemia Protocol Sodium Chloride (Ns Inj) 1,000 mls @ 75 mls/hr IV.CONT .[id number] [facility] Last Admin: 02/22/18 21:22 Dose: Not Given Insulin Aspart (Novolog Insulin Correctional Sugar Inj) 0 unit SQ ACHS [facility]; Protocol Last Admin: 02/22/18 21:29 Dose: 12 unit Insulin Detemir (Levemir Inj) 6 unit SQ QPM [facility] Last Admin: 02/22/18 17:11 Dose: 6 unit Losartan Potassium (Cozaar) 100 mg PO DAILY [facility] Last Admin: 02/22/18 09:40 Dose: 100 mg Methylprednisolone Sodium Succinate (Solumedrol Inj) 40 mg IV.PUSH Q8HR [facility] Last Admin: 02/22/18 21:28 Dose: 40 mg Nicotine (Habitrol 14 Mg Patch.24 Hr) 1 patch T-DERMAL DAILY [facility] Last Admin: 02/22/18 09:42 Dose: 1 patch Patch Removal (Remove Old Patch) 1 each T-DERMAL DAILY [facility] Last Admin: 02/22/18 09:43 Dose: 1 each Ropinirole HCl (Requip) 0.25 mg PO HS [facility] Last Admin: 02/22/18 21:23 Dose: 0.25 mg Sodium Chloride (Ns Flush) 2 ml IV.FLUSH BID [facility] Last Admin: 02/22/18 21:22 Dose: Not Given Sodium Chloride (Ns Flush) 2 ml IV.FLUSH PRN PRN PRN Reason: FLUSH AFTER USING IV ACCESS Temazepam (Restoril) 15 mg PO HS PRN PRN Reason: INSOMNIA Last Admin: 02/22/18 21:33 Dose: 15 mg Allergies Allergy/AdvReac Type Severity Reaction Status Date / Time calcium Allergy Severe Unverified 12/22/16 16:17 calcium carbonate Allergy Severe Unverified 12/22/16 16:17 calcium carbonate Allergy Severe Unverified 12/22/16 16:17 calcium chloride Allergy Severe Unverified 12/22/16 16:17 calcium polycarbophil Allergy Severe Unverified 12/22/16 16:17 cephalexin Allergy Severe Unverified 12/22/16 16:17 diatrizoate meglumine Allergy Severe Unverified 12/22/16 16:17 fluorescein Allergy Severe Rash Unverified 12/22/16 16:17 gadobenic acid Allergy Severe Unverified 12/22/16 16:17 gadodiamide Allergy Severe Unverified 12/22/16 16:17 gadoteridol Allergy Severe Unverified 12/22/16 16:17 iodixanol Allergy Severe Unverified 12/22/16 16:17 iohexol Allergy Severe Unverified 12/22/16 16:17 levofloxacin Allergy Severe Rash Unverified 12/22/16 16:17 morphine Allergy Severe Hallucinati Unverified 12/22/16 16:17 ons sulfamethoxazole Allergy Severe Unverified 12/22/16 16:17 trimethoprim Allergy Severe Unverified 12/22/16 16:17 metformin AdvReac Severe Anxiety Unverified 12/22/16 16:17 Home Medications Medication Instructions Recorded Confirmed Type albuterol sulfate 2.5 mg INHALATION Q6HR PRN 02/21/18 02/21/18 History albuterol sulfate [Ventolin HFA] 1 puff INHALATION Q4-6H 02/21/18 02/21/18 History alprazolam 0.25 mg PO DAILY PRN 02/21/18 02/21/18 History aspirin [Aspirin Low Dose] 81 mg PO DAILY 02/21/18 02/21/18 History atorvastatin 20 mg PO DAILY 02/21/18 02/21/18 History diltiazem HCl 240 mg PO DAILY 02/21/18 02/21/18 History fluticasone-salmeterol [AirDuo 1 puff INHALATION Q12H 02/21/18 02/21/18 History RespiClick] insulin detemir U-100 [Levemir 6 unit SUBCUT QPM 02/21/18 02/21/18 History U-100 Insulin] ipratropium bromide 2.5 ml INHALATION Q6HR PRN 02/21/18 02/21/18 History ropinirole 0.25 mg PO HS 02/21/18 02/21/18 History telmisartan 80 mg PO DAILY 02/21/18 02/21/18 History Exam Vital signs: Vital Signs 02/22/18 08:00 02/22/18 09:38 02/22/18 09:54 Temperature 97.0 F L Pulse Rate 105 H 104 H Respiratory Rate 18 Blood Pressure 145/68 H Pulse Oximetry 2 L 92 L 92 L 02/22/18 09:55 02/22/18 13:06 02/22/18 15:19 Temperature 98.1 F Pulse Rate 103 H 105 H 105 H Respiratory Rate 20 18 20 Blood Pressure 138/63 Pulse Oximetry 94 L 02/22/18 17:06 02/22/18 20:00 02/22/18 21:46 Temperature 98.7 F 97.5 F L Pulse Rate 99 H 100 H 92 H Respiratory Rate 16 16 20 Blood Pressure 140/67 160/74 H Pulse Oximetry 95 91 L 02/22/18 21:47 02/23/18 00:00 02/23/18 04:00 Temperature 97.3 F L 97.0 F L Pulse Rate 84 86 Respiratory Rate 16 16 Blood Pressure 121/55 L 125/64 Pulse Oximetry 95 91 L 100 02/23/18 07:27 Temperature Pulse Rate 88 Respiratory Rate 15 Blood Pressure Pulse Oximetry 94 L Intake & Output 02/22/18 02/23/18 02/23/18 18:59 06:59 18:59 Intake Total 1100 / 1100 Balance 1100 / 1100 Intake: Oral 1100 / 1100 Other: # Voids 2 Narrative: GENERAL: Well-developed well-nourished. In no acute distress. NECK: No carotid bruits. No JVD. CARDIOVASCULAR: Regular rate and rhythm. No murmur appreciated. RESPIRATORY: Significant inspiratory and expiratory wheezing in all lung pedraza. MUSCULOSKELETAL: No clubbing or cyanosis. No edema. NEUROLOGICAL: Awake and alert. Normal speech. Results 02/21/18 12:20 02/23/18 06:00 Cardiac Enzymes 02/21/18 02/21/18 02/21/18 Range/Units 12:20 18:10 23:15 AST 15 (15-37) U/L Troponin I 0.06 H 0.07 H 0.06 H (0.02-0.05) ng/mL CBC 02/21/18 Range/Units 12:20 WBC 9.6 (4.0-11.0) th/mm3 RBC 5.18 (4.00-5.30) mil/mm3 Hgb 15.8 H (11.6-15.3) gm/dL Hct 47.7 H (35.0-46.0) % Plt Count 352 (150-450) th/mm3 Neut # (Auto) 6.3 (1.8-7.7) th/mm3 Lymph # (Auto) 2.3 (1.0-4.8) th/mm3 [place] # (Auto) 0.3 (0.0-0.9) th/mm3 Eos # (Auto) 0.6 H (0.0-0.4) th/mm3 Baso # (Auto) 0.1 (0.0-0.2) th/mm3 Comprehensive Metabolic Panel 02/21/18 02/22/18 02/23/18 Range/Units 12:20 04:45 06:00 Sodium 140 139 143 (136-145) meq/L Potassium 4.1 3.8 4.2 (3.5-5.1) meq/L Chloride 108 H 107 113 H (98-107) meq/L Carbon Dioxide 24.6 22.6 21.4 (21.0-32.0) meq/L BUN 23 H 30 H 35 H (7-18) mg/dL Creatinine 1.60 H 1.60 H 1.40 H (0.50-1.00) mg/dL Calcium 9.3 9.1 8.6 (8.5-10.1) mg/dL AST 15 (15-37) U/L ALT 24 (10-53) U/L Alkaline Phosphatase 110 (45-117) U/L Total Protein 7.3 (6.4-8.2) g/dL Albumin 3.7 (3.4-5.0) g/dL Intake and Output 02/22/18 02/23/18 02/23/18 22:59 06:59 14:59 Intake Total 800 / 800 Balance 800 / 800 Intake: Oral 800 / 800 Other: # Voids 2 - Imaging and Cardiology Imaging: Impressions Chest X-Ray 02/21/18 12:18 CONCLUSION: 1. Senescent changes with right upper lobe scarring. 2. No acute cardiopulmonary disease. Chest X-Ray 02/22/18 00:00 CONCLUSION: 1. Progression of wedge-shaped parenchymal right upper lobe airspace disease which may reflect worsening atelectasis. Differential considerations include developing pneumonia and aspiration. Assessment and Plan - Plan 82-year-old female with COPD, CKD stage III with solitary kidney, tobacco use, HTN, HLD, IDDM, legally blind who presented with progressively worsening shortness of breath Shortness of breath and acute COPD exacerbation: Management per primary team. Encouraged tobacco cessation. Elevated troponin: Troponins are minimally elevated chronically and have remained flat. Suspect demand mediated, likely due to CKD. Could consider outpatient stress testing after pulmonary recovery. HTN: Controlled on current regimen. Nothing further to add from a cardiology perspective at this time and we will sign off. Please feel free to call with any questions. Discussed Condition With: Patient, Dr. Mullen
[2018-02-23] MEDS: dilTIAZem CD 240 MG Capsule PO SCH (08:24)
[2018-02-23] MEDS: Insulin NovoLOG Aspart Correctional Sugar Inj SQ SCH ×3 (08:24→23:38)
[2018-02-23] MEDS: Sod Chloride 0.9% Inj 1,000 ML IV.CONT SCH (08:27)
[2018-02-23] MEDS: MethylPREDNISolone Sod Succinate Inj 40 MG/ML Vial IV.PUSH SCH ×3 (08:31→23:36)
--- NOTE | 2018-02-23 11:36 | P.PN ---
Subjective Interval history: Had panic attack yesterday, still some congestion when she coughs and sob with exertion. Very worried about everything Physical Exam Vital signs: Vital Signs 02/22/18 13:06 02/22/18 15:19 02/22/18 17:06 Temperature 98.1 F 98.7 F Pulse Rate 105 H 105 H 99 H Respiratory Rate 18 20 16 Blood Pressure 138/63 140/67 Pulse Oximetry 94 L 95 02/22/18 20:00 02/22/18 21:46 02/22/18 21:47 Temperature 97.5 F L Pulse Rate 100 H 92 H Respiratory Rate 16 20 Blood Pressure 160/74 H Pulse Oximetry 91 L 95 02/23/18 00:00 02/23/18 04:00 02/23/18 07:27 Temperature 97.3 F L 97.0 F L Pulse Rate 84 86 88 Respiratory Rate 16 16 15 Blood Pressure 121/55 L 125/64 Pulse Oximetry 91 L 100 94 L 02/23/18 08:00 Temperature 96.9 F L Pulse Rate 98 H Respiratory Rate 22 Blood Pressure 128/68 Pulse Oximetry 95 Intake & Output 02/22/18 02/23/18 02/23/18 18:59 06:59 18:59 Intake Total 1100 / 1100 1000 / 1000 Balance 1100 / 1100 1000 / 1000 Weight 52.8 kg Intake: IV 1000 / 1000 NS Inj 1,000 ML @ 75 mls/hr IV. 1000 / 1000 CONT .[id number] [facility] Rx#: [id number] Oral 1100 / 1100 Other: # Voids 2 3 Date of Last Bowel Movement 02/21/18 - Constitutional no acute distress - Routine HEENT Exam Head: Present: normocephalic, atraumatic Eye: Present: EOMI ENT: Present: mucous membranes moist - Routine Neck Exam Present: supple - Routine Respiratory Exam Present: rhonchi Comments: coarse breathe sounds on the left, no wheezing - Routine Cardiovascular Exam Present: RRR - Routine Abdominal Exam Present: soft, normoactive bowel sounds - Routine Extremities Exam Present: full ROM - Routine Skin Exam Present: intact - Routine Psychiatric Exam Present: anxious Results - Labs CBC & Chem 7: 02/21/18 12:20 02/23/18 06:00 Laboratory Results - last 24 hr 02/22/18 02/22/18 02/22/18 11:26 16:52 21:20 Sodium Potassium Chloride Carbon Dioxide Anion Gap BUN Creatinine Estimated GFR POC Glucose 290 H 191 H 380 H Random Glucose Calcium 02/23/18 02/23/18 06:00 07:50 Sodium 143 Potassium 4.2 Chloride 113 H Carbon Dioxide 21.4 Anion Gap 9 BUN 35 H Creatinine 1.40 H Estimated GFR 36 L POC Glucose 219 H Random Glucose 203 H Calcium 8.6 Assessment and Plan - Assessment (1) Acute exacerbation of chronic obstructive pulmonary disease (COPD) Code(s): J44.1 - Chronic obstructive pulmonary disease with (acute) exacerbation Status: Acute Plan: on duonebs and solumedrol, still requiring oxygen, will likely be d/mana on oxygen and prednisone taper, (2) Elevated troponin I level Code(s): R74.8 - Abnormal levels of other serum enzymes Status: Acute Plan: seen by cardiology ,not felt to be cardiac related at this point to consider stress test as outpatient (3) Diabetes Code(s): E11.9 - Type 2 diabetes mellitus without complications Status: Chronic Plan: will increase pm levemir, cont sliding scale iv fluids, some improvement on gfr with hydration (4) Hypertension Code(s): I10 - Essential (primary) hypertension Status: Chronic Plan: continue home medications and monitor (5) Nicotine dependence Code(s): F17.200 - Nicotine dependence, unspecified, uncomplicated Status: Chronic Plan: much more tremulous today unsure if nicotine patch or prednisone, daughter dose not recall solumedrol doing this to her in the past, will stop nicotine patch for now, she verbalizes she does not plan to smoke any more (6) Anxiety Code(s): F41.9 - Anxiety disorder, unspecified Status: Chronic Plan: has been on clonazepam in the past will resume - Plan Discussed Condition With: patient and daughter (3) Diabetes Qualifiers: Diabetes mellitus type: type 2 Diabetes mellitus usp insulin use: with usp use Diabetes mellitus complication status: with kidney complications Diabetes mellitus complication detail: with chronic kidney disease Chronic kidney disease stage: stage 3 (moderate) Qualified Code(s): E11.22 - Type 2 diabetes mellitus with diabetic chronic kidney disease; N18.3 - Chronic kidney disease, stage 3 (moderate); Z79.4 - [facility] (current) use of insulin (4) Hypertension Qualifiers: Hypertension type: essential hypertension Qualified Code(s): I10 - Essential (primary) hypertension
[2018-02-23] MEDS: Budesonide-Formoterol 160/4.5 MCG 6 GM Inhaler INH SCH ×2 (11:53→23:36)
[2018-02-23] MEDS: clonazePAM 0.5 MG Tablet PO SCH (11:56)
--- NOTE | 2018-02-23 12:41 | XR ---
EXAM DATE: 02/23/2018 12:00 AM EDT AGE/SEX: 82 years / Female INDICATIONS: . Shortness of breath, pneumonia. CLINICAL DATA: This is the patient's subsequent encounter. Patient reports that signs and symptoms h ave been present for 4 - 6 days and indicates a pain score of 0/10. MEDICAL/SURGICAL HISTORY: Chronic obstructive pulmonary disease. Carcinoma, breast. Diabetes. C hronic kidney disease. Hypertension. Smoker. Musculoskeletal cancer. . Kidney removed. Left lumpectom y. . COMPARISON: [facility]PO, CHEST 2V PA&LAT, 02/22/2018. . FINDINGS: There is persistent abnormal opacity in the right midlung. Mild hyperinflation. Cardiomegaly. Degener ative changes of the spine are noted. CONCLUSION: Abnormal right upper lobe bandlike consolidative opacity unchanged. Electronically signed by: Satnam Rudolph MD 02/23/2018 12:40 PM EDT
[2018-02-23] MEDS: Azithromycin 250 MG Tablet PO SCH (15:20)
[2018-02-23] MEDS: Enoxaparin Inj 30 MG/0.3 ML Syringe SQ SCH (17:35)
[2018-02-23] MEDS: Insulin Detemir Inj 1,000 UNIT/10 ML Vial SQ SCH (17:36)
[2018-02-23] MEDS: Temazepam 15 MG Capsule PO PRN (23:42)
[2018-02-24] MEDS: MethylPREDNISolone Sod Succinate Inj 40 MG/ML Vial IV.PUSH SCH ×3 (05:01→22:59)
[2018-02-24] MEDS: Sod Chloride 0.9% Inj 1,000 ML IV.CONT SCH ×2 (05:02→14:52)
[2018-02-24 06:52] LABS: Potassium 3.9 meq/L (3.5-5.1)
[2018-02-24 06:55] LABS: Calcium 8.4 mg/dL (8.5-10.1)
[2018-02-24 06:56] LABS: Carbon Dioxide 23.4 meq/L (21.0-32.0)
[2018-02-24] MEDS: dilTIAZem CD 240 MG Capsule PO SCH (08:32)
[2018-02-24] MEDS: Budesonide-Formoterol 160/4.5 MCG 6 GM Inhaler INH SCH ×2 (08:33→19:59)
[2018-02-24] MEDS: Insulin NovoLOG Aspart Correctional Sugar Inj SQ SCH ×4 (09:07→20:05)
--- NOTE | 2018-02-24 10:22 | P.PN ---
Subjective Interval history: had mom for constipation and diarrhea afterwards, tried to review allergies with her , very anxious about taking medications and allergic reactions but unable to clearly tell me what she is allergic to except for levaquin and calcium. Physical Exam Vital signs: Vital Signs 02/23/18 12:00 02/23/18 16:00 02/23/18 20:00 Temperature 96.9 F L 97.0 F L 97.1 F L Pulse Rate 78 76 88 Respiratory Rate 20 20 20 Blood Pressure 116/56 L 131/61 132/55 L Pulse Oximetry 94 L 95 96 02/23/18 20:10 02/23/18 20:46 02/23/18 20:57 Temperature Pulse Rate 78 78 Respiratory Rate 16 Blood Pressure Pulse Oximetry 98 95 02/24/18 00:00 02/24/18 00:15 02/24/18 04:00 Temperature 98.1 F 96.9 F L Pulse Rate 88 73 68 Respiratory Rate 20 20 Blood Pressure 124/58 L 101/64 Pulse Oximetry 96 97 02/24/18 08:00 Temperature 97.7 F Pulse Rate 80 Respiratory Rate 20 Blood Pressure 135/63 Pulse Oximetry 98 Intake & Output 02/23/18 02/24/18 02/24/18 18:59 06:59 18:59 Intake Total 1000 / 1000 Output Total 1750 / 1750 Balance 1000 / 1000 -1750 / -1750 Weight 52.9 kg Intake: IV 1000 / 1000 NS Inj 1,000 ML @ 75 mls/hr IV. 1000 / 1000 CONT .[id number] [facility] Rx#: [id number] Output: Urine 1750 / 1750 Other: # Voids 3 Date of Last Bowel Movement 02/21/18 02/23/18 # Bowel Movements 1 - Constitutional no acute distress - Routine HEENT Exam Head: Present: normocephalic, tenderness of temporal artery Eye: Present: EOMI Comments: edentulous - Routine Neck Exam Present: supple - Routine Respiratory Exam Present: decreased breath sounds Comments: no ronchi or wheezed heard today - Routine Cardiovascular Exam Present: RRR - Routine Abdominal Exam Present: soft, normoactive bowel sounds - Routine Extremities Exam Present: full ROM - Routine Skin Exam Present: intact - Routine Neurological Exam Present: alert, oriented X3 - Routine Psychiatric Exam Present: normal affect, anxious Results - Labs CBC & Chem 7: 02/21/18 12:20 02/24/18 04:55 Laboratory Results - last 24 hr 02/23/18 02/23/18 02/23/18 11:49 17:34 23:26 Sodium Potassium Chloride Carbon Dioxide Anion Gap BUN Creatinine Estimated GFR POC Glucose 277 H 269 H 332 H Random Glucose Calcium 02/24/18 02/24/18 04:55 07:06 Sodium 145 Potassium 3.9 Chloride 115 H Carbon Dioxide 23.4 Anion Gap 7 BUN 37 H Creatinine 1.20 H Estimated GFR 43 L POC Glucose 105 Random Glucose 57 L D Calcium 8.4 L - Imaging Impressions Chest X-Ray 02/23/18 00:00 CONCLUSION: Abnormal right upper lobe bandlike consolidative opacity unchanged. Assessment and Plan - Assessment (1) Acute exacerbation of chronic obstructive pulmonary disease (COPD) Code(s): J44.1 - Chronic obstructive pulmonary disease with (acute) exacerbation Status: Acute Plan: on duonebs and solumedrol, still requiring oxygen, will likely be d/mana on oxygen and prednisone taper, I reviewed her xrays yesterday with radiologist given unusual shape on xray. Recommended follow up ct scan. Her renal function has improved today will order with IV contrast. Her lungs sound better to me today but she is still requiring oxygen. Prior admission for copd required very long prednisone taper. (2) Elevated troponin I level Code(s): R74.8 - Abnormal levels of other serum enzymes Status: Acute Plan: seen by cardiology ,not felt to be cardiac related at this point to consider stress test as outpatient (3) Diabetes Code(s): E11.9 - Type 2 diabetes mellitus without complications Status: Chronic Plan: sugars this am improved with increase in levemir and sliding scale, cont diabetic diet , iv fluids (4) Hypertension Code(s): I10 - Essential (primary) hypertension Status: Chronic Plan: continue home medications and monitor (5) Nicotine dependence Code(s): F17.200 - Nicotine dependence, unspecified, uncomplicated Status: Chronic Plan: removed nicotine patch yesterday, less shaky today, still stating she wont smoke again (6) Anxiety Code(s): F41.9 - Anxiety disorder, unspecified Status: Chronic Plan: dpoing better on the clonazepam , even daughter commented on it - Plan Discussed Condition With: patient and daughter (3) Diabetes Qualifiers: Diabetes mellitus type: type 2 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
[2018-02-24] MEDS: Azithromycin 250 MG Tablet PO SCH (16:41)
[2018-02-24] MEDS: Insulin Detemir Inj 1,000 UNIT/10 ML Vial SQ SCH (18:05)
[2018-02-24] MEDS: Enoxaparin Inj 30 MG/0.3 ML Syringe SQ SCH (18:05)
--- NOTE | 2018-02-24 18:22 | CT ---
EXAM DATE: 02/24/2018 5:56 PM EDT AGE/SEX: 82 years / Female INDICATIONS: Short of breath. Abnormal chest x-ray. CLINICAL DATA: This is the patient's initial encounter. Patient reports that signs and symptoms have been present for 2 days and indicates a pain score of 2/10. MEDICAL/SURGICAL HISTORY: Chronic obstructive pulmonary disease. Carcinoma, breast. Renal insuffi ciency, chronic. Hypertension. Diabetes. Nephrectomy, right. RADIATION DOSE: 6.19 CTDI (mGy) COMPARISON: No prior exams available for comparison. TECHNIQUE: Multiple contiguous axial images were obtained through the chest without contrast. Image s were obtained in suspended respiration using multiple row detector helical technique. Using automa germain exposure control and adjustment of the mA and/or kV according to patient size, radiation dose was kept as low as reasonably achievable to obtain optimal diagnostic quality images. DICOM format imag e data is available electronically for review and comparison. FINDINGS: There is a linear band of opacity at the minor fissure most characteristic of atelectasis. There is also minimal linear atelectasis or scarring in the lingula. Mild emphysema. There is no pleural or pericardial effusion. Moderate coronary calcifications. There is a 2.5 cm circumscribed mass in the medial left breast which may represent a complex seroma i n patient with reported history of breast carcinoma No acute findings in the upper abdomen. Large calcified gallstone measuring up to 2. One centimeters. Multiple left renal cysts. CONCLUSION: 1. Linear band of opacity in the right midlung most characteristic of partial right middle lobe atel ectasis. 2. 2.5 cm circumscribed mass in the medial left breast of uncertain etiology but probably a seroma g iven history of breast cancer. Electronically signed by: Ralf Barajas MD 02/24/2018 6:20 PM EDT
[2018-02-24] MEDS ORDERED: Loperamide 2 MG Capsule PO ONE (20:27)
[2018-02-24] MEDS: clonazePAM 0.5 MG Tablet PO SCH (20:50)
[2018-02-24] MEDS ORDERED: clonazePAM 0.5 MG Tablet PO SCH (21:00)
[2018-02-25] MEDS: Sod Chloride 0.9% Inj 1,000 ML IV.CONT SCH (03:56)
[2018-02-25] MEDS: MethylPREDNISolone Sod Succinate Inj 40 MG/ML Vial IV.PUSH SCH (04:59)
[2018-02-25] MEDS: Insulin NovoLOG Aspart Correctional Sugar Inj SQ SCH (08:53)
[2018-02-25] MEDS: dilTIAZem CD 240 MG Capsule PO SCH (09:18)
[2018-02-25] MEDS ORDERED: Sodium Chloride 0.45 % Inj 1,000 ML IV.CONT SCH (09:45)
--- NOTE | 2018-02-25 10:07 | P.PN ---
Subjective Interval history: Feels well this am. Ready to go to [facility]. Was able to move around the room with out getting as sob. Had diarrhea after MOM for constipation. Resolved with one dose of imodium. No abdominal pain or cramping. Physical Exam Vital signs: Vital Signs 02/24/18 10:15 02/24/18 10:17 02/24/18 12:00 Temperature 98.6 F Pulse Rate 102 H 59 L Respiratory Rate 20 20 Blood Pressure Pulse Oximetry 96 02/24/18 16:00 02/24/18 16:21 02/24/18 20:00 Temperature 97.7 F 98.1 F Pulse Rate 82 88 91 H Respiratory Rate 20 20 20 Blood Pressure 145/66 H 133/67 Pulse Oximetry 95 97 02/24/18 21:37 02/25/18 00:00 02/25/18 04:00 Temperature 96.1 F L 97.4 F L Pulse Rate 83 80 85 Respiratory Rate 18 20 20 Blood Pressure 127/60 133/63 Pulse Oximetry 98 94 L 98 Intake & Output 02/24/18 02/25/18 02/25/18 18:59 06:59 18:59 Intake Total 1480 / 1480 Output Total 500 / 500 Balance 980 / 980 Weight 53 kg Intake: IV 1000 / 1000 NS Inj 1,000 ML @ 75 mls/hr IV. 1000 / 1000 CONT .[id number] [facility] Rx#: [id number] Oral 480 / 480 Output: Urine 500 / 500 Other: Date of Last Bowel Movement 02/24/18 02/24/18 - Constitutional no acute distress - Routine HEENT Exam Head: Present: normocephalic, atraumatic Comments: dentures in - Routine Neck Exam Present: supple - Routine Respiratory Exam Present: decreased breath sounds - Routine Cardiovascular Exam Present: RRR - Routine Abdominal Exam Present: soft, normoactive bowel sounds - Routine Extremities Exam Present: full ROM - Routine Skin Exam Present: intact - Routine Neurological Exam Present: alert, oriented X3 - Routine Psychiatric Exam Present: normal affect, normal thought process Results - Labs CBC & Chem 7: 02/21/18 12:20 02/25/18 06:05 Laboratory Results - last 24 hr 02/24/18 02/24/18 02/24/18 11:59 16:29 20:02 Sodium Potassium Chloride Carbon Dioxide Anion Gap BUN Creatinine Estimated GFR POC Glucose 218 H 267 H 122 H Random Glucose Calcium 02/25/18 02/25/18 06:05 07:39 Sodium 146 H Potassium 4.0 Chloride 116 H Carbon Dioxide 22.0 Anion Gap 8 BUN 37 H Creatinine 1.40 H Estimated GFR 36 L POC Glucose 137 H Random Glucose 162 H D Calcium 8.0 L - Imaging Impressions Chest CT 02/24/18 00:00 CONCLUSION: 1. Linear band of opacity in the right midlung most characteristic of partial right middle lobe atelectasis. 2. 2.5 cm circumscribed mass in the medial left breast of uncertain etiology but probably a seroma given history of breast cancer. Assessment and Plan - Assessment (1) Acute exacerbation of chronic obstructive pulmonary disease (COPD) Code(s): J44.1 - Chronic obstructive pulmonary disease with (acute) exacerbation Status: Acute Plan: on duonebs and solumedrol, still requiring oxygen, but clinically much improved. CT scan showed apparent atelectasis of rt middle lobe. Discussed options with patient and her daughter of further evaluation here vs discharge to SNF on prednisone, duonebs and continue to follow clinical response. Repeat CT scan in 2 weeks or sooner if she does not continue to improve. Abnormality seen in left breast has been present sice her breast cancer treatment, scar tissue. Will verify with her outpatient mammograms (2) Elevated troponin I level Code(s): R74.8 - Abnormal levels of other serum enzymes Status: Acute Plan: seen by cardiology ,not felt to be cardiac related at this point to consider stress test as outpatient (3) Diabetes Code(s): E11.9 - Type 2 diabetes mellitus without complications Status: Chronic Plan: sugars this am improved with increase in levemir and sliding scale, will decrease sliding scale as we change to prednisone and taper steroids (4) Hypertension Code(s): I10 - Essential (primary) hypertension Status: Chronic Plan: continue home medications and monitor (5) Nicotine dependence Code(s): F17.200 - Nicotine dependence, unspecified, uncomplicated Status: Chronic Plan: she did not tolerate nicotine patch, so far no desire to smoke and committed to smoking cessation (6) Anxiety Code(s): F41.9 - Anxiety disorder, unspecified Status: Chronic Plan: dpoing better on the clonazepam , will continue - Plan discharge to snf today with close outpatient follow up from there Discussed Condition With: patient and daughter (3) Diabetes Qualifiers: Diabetes mellitus type: type 2 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
--- NOTE | 2018-02-25 10:38 | P.DS ---
Date of admission: 02/21/18 15:52 Primary care physician: Xin Lombardo MD Attending physician on discharge: Xin Lombardo Anticipated date of discharge: 02/25/18 Brief History from admission: 82 y/o female with history if copd , nicotine dependence, diabetes, legally blind who presents to the ED for increased sob. She was seen at the [facility] aprox 2-3 weeks ago for soband was treated with prednisone and antibiotics. She states she improved but last week again started experiencing sob. She denies fever or chills, she has had an increased cough of clear phlegm. No chest pain or palpitations. Unfortunately she continued to smoke. Per her son she was smoking aprox a pack a day. She states she only had 3 cigarettes yesterday. Her appetite has been good. She has been ambulating at home. DS: Diagnosis - Discharge Diagnosis (1) Acute exacerbation of chronic obstructive pulmonary disease (COPD) Status: Acute (2) Elevated troponin I level Status: Resolved (3) Diabetes Status: Chronic (4) Hypertension Status: Chronic (5) Nicotine dependence Status: Chronic (6) Anxiety Status: Chronic DS: Summary Hospital Course: Patient admitted for copd exacerbation, treated with antibiotics, iv solumedrol and duonebs. She required supplemental oxygen and was subjectively sob on exertion, this had improved by the time of discharge but she continued to require oxygen. Historically she has required prolonged oxygen taper for her copd exacerbations. She is diabetic and her sugars did increase significantly requiring adjustment of her levemir and high sliding scale. We discussed smoking cessation and she is expressing a desire to quit. The nicotine patch was attempted but this made her very anxious and tremulous. Imaging studies done showed atelectasis in band like form in rt lung this was confirmed by CT. Clinically she was much improved from admission so she was to Be discharge to SNF with repeat CT in 2 weeks to verify this had cleared or if she needed to proceed with further evaluation. Her overall anxiety improved with clonazepam and this will be continued for now. She did have a small elevation of her troponins on presentation and was seen by cardiology who felt this was demand mediated and could be followed up as outpatient - Time Spent with Patient Total time spent providing and/or coordinating discharge services: Greater than 30 minutes Exam Vital signs: Vital Signs 02/24/18 12:00 02/24/18 16:00 02/24/18 16:21 Temperature 98.6 F 97.7 F Pulse Rate 59 L 82 88 Respiratory Rate 20 20 20 Blood Pressure 145/66 H Pulse Oximetry 95 02/24/18 20:00 02/24/18 21:37 02/25/18 00:00 Temperature 98.1 F 96.1 F L Pulse Rate 91 H 83 80 Respiratory Rate 20 18 20 Blood Pressure 133/67 127/60 Pulse Oximetry 97 98 94 L 02/25/18 04:00 02/25/18 08:00 Temperature 97.4 F L 97.5 F L Pulse Rate 85 87 Respiratory Rate 20 18 Blood Pressure 133/63 145/63 H Pulse Oximetry 98 97 Intake & Output 02/24/18 02/25/18 02/25/18 18:59 06:59 18:59 Intake Total 1480 / 1480 Output Total 500 / 500 Balance 980 / 980 Weight 53 kg Intake: IV 1000 / 1000 NS Inj 1,000 ML @ 75 mls/hr IV. 1000 / 1000 CONT .[id number] [facility] Rx#: [id number] Oral 480 / 480 Output: Urine 500 / 500 Other: Date of Last Bowel Movement 02/24/18 02/24/18 - Constitutional no acute distress - Routine HEENT Exam Head: Present: normocephalic ENT: Present: mucous membranes moist - Routine Neck Exam Present: supple - Routine Respiratory Exam Present: decreased breath sounds - Routine Cardiovascular Exam Present: RRR - Routine Abdominal Exam Present: soft, normoactive bowel sounds - Routine Extremities Exam Present: full ROM - Routine Skin Exam Present: intact - Routine Neurological Exam Present: alert, oriented X3 - Routine Psychiatric Exam Present: normal affect, normal thought process Results Procedures completed during hospitalization: none Labs on day of discharge: Labs from last 24 hours 02/25/18 02/25/18 02/24/18 07:39 06:05 20:02 Sodium 146 H Potassium 4.0 Chloride 116 H Carbon Dioxide 22.0 Anion Gap 8 BUN 37 H Creatinine 1.40 H Estimated GFR 36 L POC Glucose 137 H 122 H Random Glucose 162 H D Calcium 8.0 L 02/24/18 02/24/18 16:29 11:59 Sodium Potassium Chloride Carbon Dioxide Anion Gap BUN Creatinine Estimated GFR POC Glucose 267 H 218 H Random Glucose Calcium - Impressions ITS Impressions Chest X-Ray 02/23/18 00:00 CONCLUSION: Abnormal right upper lobe bandlike consolidative opacity unchanged. Chest CT 02/24/18 00:00 CONCLUSION: 1. Linear band of opacity in the right midlung most characteristic of partial right middle lobe atelectasis. 2. 2.5 cm circumscribed mass in the medial left breast of uncertain etiology but probably a seroma given history of breast cancer. Discharge Plan - Discharge Disposition Patient Disposition: Discharge to SNF - Discharge Condition Condition: Fair - Discharge Order Discharge Orders: Discharge Order (Routine); Ordered 02/25/18 Ordered By: Xin Lombardo - Discharge Details Anticipated Discharge Date: 02/25/18 - Physicians Team Primary Care Provider: Xin Lombardo Attending Provider: Xin Lombardo Other Providers: Gus Ballard MD ; Alondra Estes,Agency
[2018-02-25] MEDS: Budesonide-Formoterol 160/4.5 MCG 6 GM Inhaler INH SCH (10:39)
[2018-02-25] MEDS ORDERED: Insulin NovoLOG Aspart Correctional Sugar Inj SQ SCH (12:00)
[2018-02-25 12:11] VITALS: BP 141/67; TEMP 97.1
[2018-02-25] MEDS ORDERED: predniSONE 20 MG Tablet PO SCH (13:00)
[2018-02-25 14:34] VITALS: PULSE 79; RESP 20; O2SAT 94
[2018-02-27] MEDS ORDERED: predniSONE 20 MG Tablet PO SCH (09:00)
== END 2018-02-25 15:21 ==
LOC: PHEFT 11:40 → PHEDA 15:52 → PH3 17:06
PROVIDERS: ADMIT Legal Medicine; ATTEND Legal Medicine